=== PATIENT | male | born 1945 | race Caucasian/White ===

== ENCOUNTER 2019-10-19 05:06 | Day surgery (SDC) | payer MEDICARE, SELFPAY ==
[2019-10-14 14:20] VITALS: BMI 32.3
[2019-10-19 10:17] VITALS: BP 124/70; PULSE 58; RESP 18; TEMP 36.2; O2SAT 99; BMI 31.9
[2019-10-19] MEDS: LACTATED RINGERS 1,000 ML 150 ML IV CONT (10:38)
--- NOTE | 2019-10-19 11:20 | P.PNAN_ITS ---
Anes - Initial Pre Proc Eval Procedure: Operation Date: 10/19/19 11:30 Proposed Procedures p Screening Colonoscopy - Jovany Auguste MD Date/Time: 10/19/19 11:20 Surgeon: Jovany Auguste MD Pre Op Diagnosis: Neoplasm Screening Patient Data Age: 74 Gender: M Height: 5 ft 10 in Weight: 101.1 kg Last Vital Signs Temp 97.2 F L 10/19/19 10:17 Pulse 58 L 10/19/19 10:17 Resp 18 10/19/19 10:17 BP 124/70 10/19/19 10:17 Pulse Ox 99 10/19/19 10:17 Allergies Allergy/AdvReac Type Severity Reaction Status Date / Time No Known Allergies Allergy Unverified 10/19/19 10:16 Home Medications Medication Instructions Recorded Confirmed Type brinzolamide-brimonidine 1 drp OPHTHALMIC (EYE) DAILY 10/14/19 10/14/19 History [Simbrinza] Patient hx anesthesia problems: none Family hx anesthesia problems: none PENDING SALE TO [facility] Social History Social History Smoking status: Never smoker Alcohol intake: current Anes - Eval Final PreProcedure Day of Procedure 10/19/19 11:20 Patient weight: overweight Heart: regular rate and rhythm Lungs: clear to auscultation Airway: Mallampati scale class II Neurological: alert and oriented Last oral intake: >/= 8 hours ASA classification: II Emergent: no Anesthetic plan: proceed Anesthesia type and monitoring: general GIVS and standard monitoring Informed Consent: The patient's anesthetic plan and its attendant risks and benefits were discussed with the patient/family/POA. Questions were solicited and answers provided to the satisfaction of the patient/family/POA.
--- NOTE | 2019-10-19 11:22 | P.HP_ITS ---
History of Present Illness History of Present Illness Consent: Risks, benefits, and alternatives have been discussed and questions answered. Patient agrees to proceed with procedure. Chief complaint: Neoplasm Screening Narrative: Javier Harrison is a 74 year old W male for screening colonoscopy secondary to family hx of colon cancer. Last colonoscopy was 5 yrs ago and no polyps were seen. 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 Surgical History Surgical History (Updated 10/19/19 @ 11:25 by Jovany Auguste MD) H/O left knee surgery Social History Social History Smoking status: Never smoker Alcohol intake: current Meds Home Medications and Allergies Home Medications Medication Instructions Recorded Confirmed Type brinzolamide-brimonidine 1 drp OPHTHALMIC (EYE) DAILY 10/14/19 10/14/19 History [Simbrinza] Allergies Allergy/AdvReac Type Severity Reaction Status Date / Time No Known Allergies Allergy Unverified 10/19/19 10:16 Vital Signs Vital Signs - 24 hr 10/19/19 10:17 Temperature 36.2 C L Pulse Rate 58 L Respiratory Rate 18 Blood Pressure 124/70 Pulse Oximetry 99 Exam Const: Orientation/consciousness: patient oriented x3 Resp: Auscultation: clear to auscultation bilaterally Cardio: Rate: regular rate Rhythm: regular rhythm Heart sounds: no murmurs GI: GI Palp: Yes Soft to palpation, No Tenderness to palpation present (GI), Yes No hepatosplenomegaly present and No Palpable mass present Auscultation: normal bowel sounds Neuro: General: patient oriented x3 and no focal motor deficits Extrem: General: no pedal edema Assessment and Plan Additional Plan colonoscopy
[2019-10-19] MEDS: SIMETHICONE ORAL SUSPENSION 20 MG/0.3 ML 30 ML BOTTLE 0.6 ML IRRIGATION (12:07)
[2019-10-19 12:21] VITALS: BP 107/49; PULSE 63; RESP 22; O2SAT 99
[2019-10-19 12:31] VITALS: BP 110/59; PULSE 62; RESP 27; O2SAT 97
[2019-10-19 12:41] VITALS: BP 127/61; PULSE 50; RESP 24; O2SAT 99
== END 2019-10-19 13:01 | disposition home or self-care (01) ==
PROVIDERS: PCP Internal Medicine; Visit Provider Internal Medicine Gastroenterology
PROC: 0DJD8ZZ Inspection of Lower Intestinal Tract, Via Natural or Artificial Opening Endoscopic (ICD-10-PCS; CPT 45378; principal; 2019-10-19 11:30)
DX: Z12.11 Encounter for screening for malignant neoplasm of colon (principal); D12.0 Benign neoplasm of cecum; K63.5 Polyp of colon; K64.8 Other hemorrhoids; K64.4 Residual hemorrhoidal skin tags; K57.30 Diverticulosis of large intestine without perforation or abscess without bleeding; Z80.0 Family history of malignant neoplasm of digestive organs
CPT/HCPCS: 45385; 45380; 88305; J2704; J7120

== ENCOUNTER 2020-02-03 10:37 | Outpatient (CLI) | payer MEDICARE, SELFPAY ==
[2020-02-03 10:52] LABS: Basophils Percent Auto 0.2 % (0.2-1.2); Eosinophils Absolute Auto 0.1 K/mm3 (0-0.3); Eosinophils Percent Auto 1.3 % (0-4.4); Hematocrit 42.9 % (42.0-52.0); Lymphocytes Absolute Auto 1.39 K/mm3 (0.9-3.2); Mean Corpuscular HGB Conc 32.6 g/dl (32-36); Mean Corpuscular Hemoglobin 31.7 pg (26-34); Mean Corpuscular Volume 97.1 fl (80-100); Mean Platelet Volume 9.1 fl (7.4-10.4); Monocytes Absolute Auto 0.4 K/mm3 (0.1-0.6); Monocytes Percent Auto 9.1 % (2.6-8.5); Neutrophils Absolute Auto 2.6 K/mm3 (1.3-6.7); Neutrophils Percent Auto 58.4 % (45.5-73.1); Platelet Count Result 218 k/mm3 (150-375); Red Blood Count 4.42 M/mm3 (4.6-6.20); Red Cell Distribution Width 12.6 % (11.5-14.5); White Blood Count 4.5 K/mm3 (4.5-10.0)
[2020-02-03 10:55] LABS: Blood Urea Nitrogen 17 mg/dL (8-26); Carbon Dioxide 23 mmol/L (22-30); Chloride 105 mmol/L (98-109); Estimated Glomerular Filt Rate > 60; Glucose 100 mg/dL (70-105); Potassium 4.3 mmol/L (3.5-4.9); Sodium 141 mmol/L (138-146)
[2020-02-03 12:17] LABS: Alanine Aminotransferase 13 U/L (4-50); Albumin Level 4.2 g/dL (3.5-5.1); Alkaline Phosphatase 60 U/L (38-126); Aspartate Amino Transferase 23 U/L (17-59); Bilirubin,Total 0.4 mg/dL (0.2-1.3); Blood Urea Nitrogen 17 mg/dL (9-20); Calcium 8.9 mg/dL (8.4-10.2); Carbon Dioxide 24 mmol/L (22-30); Chloride 107 mmol/L (98-107); Estimated Glomerular Filt Rate > 60; Glucose 103 mg/dL (75-110); Lactate Dehydrogenase 333 U/L (313-618); Potassium 4.6 mmol/L (3.4-5.0); Sodium 137 mmol/L (137-145)
== END 2020-02-03 10:38 | disposition home or self-care (01) ==
PROVIDERS: PCP Internal Medicine; Visit Provider Internal Medicine Hematology & Oncology
DX: C43.61 Malignant melanoma of right upper limb, including shoulder (principal)
CPT/HCPCS: 36415; 80048; 80053; 83615; 85025

== ENCOUNTER 2023-01-02 00:39 | Day surgery (SDC) | payer MEDICARE, SELFPAY ==
[2022-12-21 09:18] VITALS: BMI 32.2
--- NOTE | 2023-01-01 16:12 | PM.HPGS ---
History of Present Illness History of Present Illness Consent: Risks, benefits, and alternatives have been discussed and questions answered. Patient agrees to proceed with procedure. Chief complaint: family hx colon ca, hx colon poylps Narrative: Javier Harrison is a 77 year old male has a family history of colon cancer. He also had 2 polyps removed 2 years ago. 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 Surgical History Surgical History H/O left knee surgery Social History Social History Smoking status: Never smoker Alcohol intake: current Alcohol use details: rare Substance use: never Substance use type: does not use Living arrangements: with family Spiritual care concerns: No Meds Home Medications and Allergies Home Medications Medication Instructions Recorded Confirmed Type brinzolamide 1 %-brimonidine 0.2 % 1 drp ophthalmic (eye) DAILY 10/14/19 12/21/22 History eye drops,suspension (Simbrinza) losartan 50 mg tablet 50 mg PO DAILY 12/21/22 12/21/22 History Allergies Allergy/AdvReac Type Severity Reaction Status Date / Time No Known Allergies Allergy Verified 01/02/23 09:26 Assessment and Plan Assessment and plan (1) Colon cancer screening: Code(s): Z12.11 - Encounter for screening for malignant neoplasm of colon Status: Acute Assessment and Plan: Colonoscopy with possible biopsy or polypectomy or cautery or injection of substances.
[2023-01-02 09:31] VITALS: BP 127/72; PULSE 75; RESP 18; TEMP 36.1; O2SAT 100
[2023-01-02] MEDS: LACTATED RINGERS 1,000 ML 150 ML IV CONT (09:48)
--- NOTE | 2023-01-02 09:58 | P.PNAN_ITS ---
Anes - Initial Pre Proc Eval Procedure: Operation Date: 01/02/23 10:45 Proposed Procedures p Colonoscopy - Will Hamilton MD Date/Time: 01/02/23 09:58 Surgeon: Will Hamilton MD Pre Op Diagnosis: family hx colon ca, hx colon poylps Patient Data Age: 77 Gender: M Height: 1.78 m Weight: 100.9 kg Last Vital Signs Temp 97 F L 01/02/23 09:31 Pulse 75 01/02/23 09:31 Resp 18 01/02/23 09:31 BP 127/72 01/02/23 09:31 Pulse Ox 100 01/02/23 09:31 O2 Del Method Room Air 01/02/23 09:31 Allergies Allergy/AdvReac Type Severity Reaction Status Date / Time No Known Allergies Allergy Verified 01/02/23 09:26 Home Medications Medication Instructions Recorded Confirmed Type brinzolamide 1 %-brimonidine 0.2 % 1 drp ophthalmic (eye) DAILY 10/14/19 12/21/22 History eye drops,suspension (Simbrinza) losartan 50 mg tablet 50 mg PO DAILY 12/21/22 12/21/22 History Patient hx anesthesia problems: none Family hx anesthesia problems: none Results Review: All pre-operative results and documents have been reviewed as part of the pre- operative evaluation. 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 Surgical History Surgical History H/O left knee surgery Social History Social History Smoking status: Never smoker Alcohol intake: current Alcohol use details: rare Substance use: never Substance use type: does not use Living arrangements: with family Spiritual care concerns: No Anes - Eval Final PreProcedure Day of Procedure 01/02/23 09:58 Patient weight: obese Heart: regular rate and rhythm Lungs: clear to auscultation Airway: Mallampati scale class II Neurological: alert and oriented Last oral intake: >/= 8 hours ASA classification: II Emergent: no Anesthetic plan: proceed Anesthesia type and monitoring: general GIVS and standard monitoring Results Review: All pre-operative results and documents have been reviewed as part of the pre- operative evaluation. Informed Consent: The patient's anesthetic plan and its attendant risks and benefits were discussed with the patient/family/POA. Questions were solicited and answers provided to the satisfaction of the patient/family/POA.
[2023-01-02] MEDS: SIMETHICONE ORAL SUSPENSION 20 MG/0.3 ML 30 ML BOTTLE 0.6 ML IRRIGATION (10:33)
[2023-01-02 10:42] VITALS: BP 90/49; PULSE 63; RESP 23; O2SAT 98
[2023-01-02 10:52] VITALS: BP 91/57; PULSE 68; RESP 22; O2SAT 99
[2023-01-02 11:02] VITALS: BP 120/70; PULSE 60; RESP 20; O2SAT 99
== END 2023-01-02 11:16 | disposition home or self-care (01) ==
PROVIDERS: PCP Internal Medicine; Visit Provider Internal Medicine Gastroenterology
PROC: 0DJD8ZZ Inspection of Lower Intestinal Tract, Via Natural or Artificial Opening Endoscopic (ICD-10-PCS; CPT 45378; principal; 2023-01-02 10:45)
DX: Z12.11 Encounter for screening for malignant neoplasm of colon (principal); Z86.010 Personal history of colon polyps; Z80.0 Family history of malignant neoplasm of digestive organs; K57.30 Diverticulosis of large intestine without perforation or abscess without bleeding; K64.8 Other hemorrhoids
CPT/HCPCS: G0105; J2704; J7120